=== PATIENT | female | born 1995 | race Caucasian/White ===

== ENCOUNTER 2020-11-03 06:36 | Day surgery (SDC) | payer OTHER ==
[2020-11-03] VITALS (9 sets, daily range): BP systolic 102–121; BP diastolic 64–81
[~2020-11-03] VITALS: Ht 172.7 cm; Wt 76.7 kg
[~2020-11-03 06:36] MED LIST: BLISOVI FE 1.51 EACH PO; IRON 100 PLUS1 EACH PO; PANTOPRAZOLE SO40 MG ORAL; PROZAC10 MG ORAL; ZYRTEC10 MG ORAL
[2020-11-03] MEDS ORDERED: LR 1000ml 1,000 ML IVLG SCH ×2 (07:00→07:15)
--- NOTE | 2020-11-03 07:12 | Anethesia Preoperative Eval ---
Anesthesia Pre-op PMH/ROS General Date of Evaluation: Nov 03, 2020 Time of Evaluation: 07:10 Anesthesiologist: Annalisa ASA Score: ASA 2 Mallampati Score Class I : Soft palate, uvula, fauces, pillars visible Class II: Soft palate, uvula, fauces visible Class III: Soft palate, base of uvula visible Class IV: Only hard plate visible Mallampati Classification: Class II Surgeon: Wang Diagnosis: Abdominal pain Surgical Procedure: EGD Colonoscopy Anesthesia History: none Family History: no anesthesia problems Allergies: Coded Allergies: Kiwi (Verified Allergy, Intermediate, 11/03/20) breaks out in hives when touching kiwi Reardan (Verified Allergy, Intermediate, 11/03/20) breaks into hives and rashes when in contact with sherry Medications: see eMAR Patient NPO?: Yes Past Medical History Cardiovascular: Denies: HTN, CAD, DC, valve dz, arrhythmia, other Pulmonary: Denies: asthma, COPD, MONIE, other Gastrointestinal/Genitourinary: Reports: GERD; Denies: CRI, ESRD, other Neurologic/Psychiatric: Reports: depression/anxiety; Denies: dementia, CVA, TIA, other Endocrine: Denies: DM, hypothyroidism, steroids, other HEENT: Denies: cataract (L), cataract (R), glaucoma, STILLAGUAMISH (L), STILLAGUAMISH (R), other Hematology/Immune: Reports: anemia - mild; Denies: DVT, bleeding disorder, other Musculoskeletal/Integumentary: Denies: OA, RA, DJD, DDD, edema, other PMH Narrative: as above PSxH Narrative: see H&P Anesthesia Pre-op Phys. Exam Physician Exam Last Vital Signs Date Time Temp Pulse Resp B/P (MAP) Pulse Ox O2 Delivery O2 Flow Rate FiO2 11/03/20 06:59 Room Air Constitutional: NAD Neurologic: CN 2-12 intact Cardiovascular: RRR, no M/R/G Respiratory: CTA Gastrointestinal: S/NT/ND Airway Exam Mallampati Score: Class II MO: full Neck: flexible Dentures: no upper, no lower Anesthesia Pre-op A/P Risk Assessment & Plan Assessment: ASA 2 Plan: Mac Status Change Before Surgery: No Swapnil Fang MD Nov 03, 2020 07:12
[2020-11-03] MEDS ORDERED: fentaNYL 100 mcg/2 mL IV PRN (07:15)
[2020-11-03] MEDS ORDERED: LR 1000ml ONE (08:00)
[2020-11-03] MEDS ORDERED: fentaNYL 100 mcg/2 mL IV ONE (08:00)
[2020-11-03] MEDS ORDERED: Midazolam 2mg/2ml Inj ONE (08:00)
--- NOTE | 2020-11-03 08:16 | Pre-Procedure Note/Attestation ---
Pre-Procedure Note/Attestation Complete Prior to Procedure Planned Procedure: not applicable Procedure Narrative: esophagogastroduodenoscopy colon Indications for Procedure Pre-Operative Diagnosis: diarrhea, abd pain Attestation I attest that I discussed the nature of the procedure; its benefits; risks and complications; and alternatives (and the risks and benefits of such alternatives), prior to the procedure, with the patient (or the patient's legal contact representative). I attest that, if there was a reasonable possibility of needing a blood transfusion, the patient (or the patient's legal contact representative) was given the [facility] standardized written summary, pursuant to the [place] Blood Safety Act ([place] Health and Safety Code # 1645, as amended). I attest that I re-evaluated the patient just prior to the surgery and that there has been no change in the patient's H&P, except as documented below: Noemí Ambriz MD Nov 03, 2020 08:16
--- NOTE | 2020-11-03 09:03 | Immediate Post-Op Evaluation ---
Immediate Post-Op Evalulation Immediate Post-Op Evalulation Procedure: EGD Colonoscopy Date of Evaluation: Nov 03, 2020 Time of Evaluation: 09:02 IV Fluids: 700 Blood Products: none Estimated Blood Loss: none Urinary Output: none Blood Pressure Systolic: 118 Blood Pressure Diastolic: 72 Pulse Rate: 74 Respiratory Rate: 20 O2 Sat by Pulse Oximetry: 99 Temperature (Fahrenheit): 97.6 Pain Score (1-10): 1 Nausea: No Vomiting: No Complications none Patient Status: awake, patent, none Hydration Status: adequate Swapnil Fang MD Nov 03, 2020 09:03
--- NOTE | 2020-11-03 09:04 | Short Stay Surgery H&P ---
History of Present Illness History of Present Illness Chief Complaint see H&P attached HPI Lizabeth Fuller is a 24 year old female who was admitted on for Diarriah And Adominal Pain Patient History Allergies: Coded Allergies: Kiwi (Verified Allergy, Intermediate, 11/03/20) breaks out in hives when touching kiwi Sidell (Verified Allergy, Intermediate, 11/03/20) breaks into hives and rashes when in contact with sherry Medication History Scheduled Cetirizine Hcl* (Zyrtec*), 10 MG ORAL DAILY, (Reported) Fluoxetine Hcl* (Prozac*), 10 MG ORAL DAILY, (Reported) Iron,Carbonyl/Vit C/Vit B12/Fa (Iron 100 Plus Tablet), 1 EACH PO ONCE, (Reported) Norethindrone-E.estradiol-Iron (Blisovi Fe 1.5-30 Tablet), 1 EACH PO ONCE, (Reported) Pantoprazole* (Pantoprazole*), 40 MG ORAL DAILY, (Reported) Physical Exam Vital Signs Last Vital Signs Date Time Temp Pulse Resp B/P (MAP) Pulse Ox O2 Delivery O2 Flow Rate FiO2 11/03/20 07:19 98.7 70 18 109/64 99 Room Air Labs Laboratory Tests Test 11/03/20 06:05 Urine HCG, Qualitative Negative (NEGATIVE) Plan Attestation Are the patient's medical conditions optimized for surgery? Noemí Ambriz MD Nov 03, 2020 09:04
--- NOTE | 2020-11-03 09:06 | Brief Operative Note ---
Immediate Post Operative Note Operative Note Chief Complaint: abd pain, diarrhea Pre-op Diagnosis: diarrhea, abd pain Procedure: esophagogastroduodenoscopy snare bx colon bx Post-op Diagnosis: gastric polyps Surgeon: ruth Anesthesiologist: coleman Specimen: yes Complications: none Condition: stable Fluids: given Estimated Blood Loss: none Drains: none Implant(s) used?: No Noemí Ambriz MD Nov 03, 2020 09:05
--- NOTE | 2020-11-03 09:07 | Brief Operative Note ---
Immediate Post Operative Note Operative Note Chief Complaint: abd pain diarrhea Pre-op Diagnosis: diarrhea, abd pain Procedure: esophagogastroduodenoscopy snare bx colon bx Post-op Diagnosis: gastric polyps Surgeon: ruth Anesthesiologist: Susie Anesthesia: MAC Specimen: yes Complications: none Condition: stable Fluids: given Implant(s) used?: No Noemí Ambriz MD Nov 03, 2020 09:07
--- NOTE | 2020-11-03 09:49 | 48 Hour Post Anesthesia Eval ---
Post Anesthesia Evaluation Procedure: EGD Colonoscopy Date of Evaluation: Nov 03, 2020 Time of Evaluation: 09:48 Blood Pressure Systolic: 116 0: 74 Pulse Rate: 72 Respiratory Rate: 20 Temperature (Fahrenheit): 97.8 O2 Sat by Pulse Oximetry: 98 Airway: patent Nausea: No Vomiting: No Pain Intensity: 1 Hydration Status: adequate Cardiopulmonary Status: stable Mental Status/LOC: patient returned to baseline Follow-up Care/Observations: n/a Post-Anesthesia Complications: none Follow-up care needed: ready to discharge Swapnil Fang MD Nov 03, 2020 09:49
--- NOTE | 2020-11-03 23:14 | Procedure Note ---
DATE OF PROCEDURE: 11/03/2020 GASTROLOGY PROCEDURE PROCEDURE: Upper gastrointestinal endoscopy with biopsy as well as snare polypectomy as well as colonoscopy with biopsy. SURGEON: Noemí Ambriz M.D. ANESTHESIA: Please see the separate anesthesiologist notes for details. PRE-ENDOSCOPIC DIAGNOSES: 1. Abdominal pain. 2. Refractory diarrhea. 3. History of gastroesophageal reflux. POST-ENDOSCOPIC DIAGNOSES: 1. Linear polypoid growth in the pre-pylorus region, status post biopsy. 2. Two umbilicated nodules in the proximal antrum, status post biopsy. 3. Multiple colonic polyps in the fundus, 3 of which were pedunculated and all free, removed with a snare polypectomy. 4. Normal colonoscopy to 15 cm of the terminal ileum, status post random biopsies as described below. DESCRIPTION OF PROCEDURE: The procedure, its risks, indications, alternatives, and possible complications including, but not limited to, bleeding, infection, perforation, , and anesthesia complications were explained to the patient and informed consent was obtained. The patient was then sedated in the left lateral decubitus position and a diagnostic upper endoscope was introduced through the oropharynx and advanced to the duodenum without difficulty. The endoscope was then gradually withdrawn and the mucosa examined carefully. The duodenal mucosa was normal and they were biopsied and sent to Pathology for review. In the pre-pyloric region of the antrum, there was a linear polypoid growth of unclear significance, possibly representing a fold. This was biopsied and sent to Pathology for review. There were 2 umbilicated nodules in the proximal antrum measuring approximately 7 mm to 8 mm each. These were biopsied and sent to Pathology for review. In the fundus of the stomach, multiple polyps were seen of various sizes. Three of these polyps measured up to 1 cm in diameter and they were pedunculated. All 3 were removed with hot snare polypectomy and specimens were retrieved with a basket. The remainder of the upper endoscopic examination was unremarkable. The patient was then turned around. A rectal exam was done and a colonoscope was introduced into the rectum and advanced to 15 cm of the terminal ileum. The colonoscope was then gradually withdrawn and mucosa examined carefully. Examination of the terminal ileum as well as the colonic mucosa did not reveal any abnormalities. Random biopsies of the terminal ileum, right colon, left colon were sent to Pathology for review. The colonoscope was removed. The patient was sent to recovery in good condition. COMPLICATIONS: None. RECOMMENDATIONS: 1. Follow up biopsy results. 2. Outpatient followup. 3. Discussed possible downgrading of proton pump inhibitor to histamine 2 radha at next visit. Noemí Ambriz M.D. DR: NISREEN JOB#: [id number] CC:
== END 2020-11-03 10:00 | disposition home or self-care (01) ==
LOC: GAS 06:36
DX: K63.5 Polyp of colon (principal); K21.9 Gastro-esophageal reflux disease without esophagitis; Z79.899 Other long term (current) drug therapy; Z91.018 Allergy to other foods; D64.9 Anemia, unspecified; F32.9 Major depressive disorder, single episode, unspecified; F41.9 Anxiety disorder, unspecified
CPT/HCPCS: 43239; 43251; 45380; 81025; 94003; J2250; J2704; J3010; J7120; U0004; 94150